=== PATIENT | female | born 1985 | race American Indian/Alaskan Native ===

== ENCOUNTER 2017-11-26 00:52 | Emergency (ER) | payer MEDICAID, OTHER ==
[2017-11-26 01:09] VITALS: O2SAT 98
--- NOTE | 2017-11-26 02:54 | C.PDOC ---
History Of Present Illness 32 year old female presents to the ER with a complaint of a frontal headache for the past 5 days. Patient states she has a Hx of "?pituitary hemorrhage" in 2011 and is concerned because she has not had a headache since then which prompted visit. Patient last took motrin at 1800 yesterday. Denies nausea, vomiting, weakness, numbness, or photophobia. Time Seen by Provider: 11/26/17 01:23 Chief Complaint (Nursing): Headache History Per: Patient History/Exam Limitations: no limitations Onset/Duration Of Symptoms: Days Current Symptoms Are (Timing): Still Present Preceeding Symptoms: None Associated Symptoms: denies: Photophobia, Blurred Vision, Nausea, Vomiting, Extremity Weakness Recent travel outside of the [place]: No Past Medical History Reviewed: Historical Data, Nursing Documentation, Vital Signs Vital Signs: Last Vital Signs Temp 98.6 F 11/26/17 01:05 Pulse 72 11/26/17 01:05 Resp 20 11/26/17 01:05 BP 118/69 11/26/17 01:05 Pulse Ox 98 11/26/17 03:02 Family History: States: Unknown Family Hx - Social History Hx Tobacco Use: No Hx Alcohol Use: Yes Hx Substance Use: No - Immunization History Hx Tetanus Toxoid Vaccination: No Hx Influenza Vaccination: No Hx Pneumococcal Vaccination: No Review Of Systems Constitutional: Negative for: Fever, Chills Respiratory: Negative for: Cough Gastrointestinal: Negative for: Nausea, Vomiting Musculoskeletal: Negative for: Neck Pain Neurological: Positive for: Headache Physical Exam - Physical Exam Appears: Non-toxic Skin: Normal Color, Warm, Dry Head: Atraumatic, Normacephalic, No Other (Facial paresis) Eye(s): bilateral: Normal Inspection, PERRL, EOMI Nose: Normal Oral Mucosa: Moist Neck: Normal, Supple Chest: Symmetrical, No Tenderness Cardiovascular: Rhythm Regular Respiratory: Normal Breath Sounds, No Rales, No Rhonchi, No Wheezing Gastrointestinal/Abdominal: Soft, No Tenderness Extremity: Normal ROM (x4) Neurological/Psych: Oriented x3, Normal Speech, Normal Motor, Normal Sensation, Other (No focal deficits) ED Course And Treatment O2 Sat by Pulse Oximetry: 98 (room air) Pulse Ox Interpretation: Normal Progress Note: CT head ordered, results were negative. Tylenol administered for pain. On reevaluation, patient is resting comfortably in the ER in no acute distress, vitals are stable, will discharge home with Rx and instructions to follow up with PMD or return if symptoms worsen. 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 - Scribe Statement The provider has reviewed the documentation as recorded by the Scribe Gurpreet Cat All medical record entries made by the Scribe were at my direction and personally dictated by me. I have reviewed the chart and agree that the record accurately reflects my personal performance of the history, physical exam, medical decision making, and the department course for this patient. I have also personally directed, reviewed, and agree with the discharge instructions and disposition.
[2017-11-26 04:15] VITALS: BP 115/67; PULSE 78; RESP 16; TEMP 98.5
--- NOTE | 2017-11-26 08:28 | CT ---
Date of service: 11/26/2017 PROCEDURE: CT HEAD WITHOUT CONTRAST. HISTORY: headache COMPARISON: None available. TECHNIQUE: Axial computed tomography images were obtained through the head/brain without intravenous contrast. Radiation dose: Total exam DLP = 820 mGy-cm. This CT exam was performed using one or more of the following dose reduction techniques: Automated exposure control, adjustment of the mA and/or kV according to patient size, and/or use of iterative reconstruction technique. FINDINGS: HEMORRHAGE: No intracranial hemorrhage. BRAIN: No mass effect or edema. No atrophy or chronic microvascular ischemic changes. Prominent cisterna magna. VENTRICLES: Unremarkable. No hydrocephalus. CALVARIUM: Unremarkable. PARANASAL SINUSES: Left mid ethmoid air cell osteoma. MASTOID AIR CELLS: Unremarkable as visualized. No inflammatory changes. OTHER FINDINGS: None. IMPRESSION: No acute intracranial abnormality. If symptoms persist, consider correlation with MRI. These findings were preliminarily reported at 3:28 a.m. on 11/26/[address] Reynaldo Mederos from [facility].
== END 2017-11-26 04:15 | disposition home or self-care (01) ==
LOC: C.ER 00:52
DX: R51 Headache (principal)